=== PATIENT | female | born 1955 | race Caucasian/White ===

== ENCOUNTER 2019-09-20 06:48 | Day surgery (SDC) | payer MEDICARE, BC ==
[~2019-09-20 06:48] MED LIST: Lactated Ringers 1,000 ML IV SCH; Sodium Chloride 0.9% 10 ML Syringe FLUSH PRN
[2019-09-20] MEDS ORDERED: Lidocaine 2% 5 ML SDV INJECT ONE (06:49)
[2019-09-20] MEDS ORDERED: Propofol 200 MG/20 ML SDV IV ONE (06:49)
[2019-09-20] MEDS ORDERED: Midazolam 1 MG/ML 2 ML SDV IV ONE (06:49)
[2019-09-20] MEDS ORDERED: Ketamine 500 mg/10 ML MDV IV ONE (06:49)
--- NOTE | 2019-09-20 09:59 | PCM.OPNOTE ---
- General Post-Op/Procedure Note Date of Surgery/Procedure: 09/20/19 Operative Procedure(s): EGD with Biopsy. Colonoscopy with Biopsy Findings: Post bariatric procedure anatomy but no acute inflammation or lesion on upper endoscopy Small transverse colon polyp but otherwise normal appearing colon Hemorrhoids Pre Op Diagnosis: Abdominal pain. Diarrhea Post-Op Diagnosis: Post Bariatric Surgery. Colon polyp. Hemorrhoids Anesthesia Technique: MAC Primary Surgeon: Tristan Reno Pathology: Biopsies of gastric mucosa and colon EBL in mLs: 4 Complications: None Condition: Good
--- NOTE | 2019-09-20 10:28 | PREOP ---
ADMISSION DATE: 09/20/2019 HISTORY OF PRESENT ILLNESS: This 63-year-old female presents today for an EGD and colonoscopy. She has been having right upper quadrant abdominal pain which is unrelenting. She is not able to identify any inciting events, but the location of the pain is consistent and it continues to recur. The patient also has had several months of unexplained diarrhea. She does have a history of antibiotic use, although this has not recently affected the diarrhea and it also continues. PAST MEDICAL HISTORY: Unchanged from her recent history and physical. She does have a history of having had gastric bypass surgery. MEDICATIONS: Reviewed and noted in her medical record. ALLERGIES: She has no known drug allergies. PHYSICAL EXAMINATION: VITAL SIGNS: Temperature is 98.8, pulse 78, blood pressure is 150/82. GENERAL: The patient is alert, adult female, no acute distress. HEENT: Head is normocephalic. No scleral icterus. HEART: Regular without murmur. LUNGS: Clear. ABDOMEN: Soft and nontender. IMPRESSION: Persistent abdominal pain and diarrhea. PLAN: EGD and colonoscopy. I have discussed the proposed operative procedures with the patient. She understands indications and risks and agrees to proceed. /[id number] SANDRA/BOYD
--- NOTE | 2019-09-20 10:46 | OR ---
DATE OF OPERATION: 09/20/2019 SURGEON: Tristan Reno MD PREOPERATIVE DIAGNOSES: 1. Abdominal pain. 2. Diarrhea. POSTOPERATIVE DIAGNOSES: 1. Post bariatric surgery status. 2. Transverse colon polyp and hemorrhoids. OPERATIONS PERFORMED: 1. Esophagogastroduodenoscopy with biopsy. 2. Colonoscopy with biopsy and polypectomy. INDICATIONS FOR SURGERY: This 63-year-old female has been experiencing unexplained right upper quadrant abdominal pain as well as having a several month history of diarrhea. She comes now for diagnostic upper and lower endoscopy. FINDINGS: On upper endoscopy, the patient's anatomy is abnormal because of her history of bariatric surgery. There is some fluid retained within the distal esophagus, but the scope was able to be advanced down into the stomach and felt to be able to be advanced into the small bowel through the somewhat abnormal anatomy. No visible signs of inflammation, ulcers, or other findings to explain her abdominal pain are noted. On colonoscopy, the patient's colon mucosa appeared normal without visible signs of inflammation. There was single transverse colon polyp, which was 5 mm in size and sessile in configuration. The patient also had small internal and external hemorrhoids. PROCEDURE IN DETAIL: The patient was taken to the procedure room. She was given intravenous sedation, and after a mouth gag had been placed, the gastroscope was advanced through this into the oral cavity. It was then advanced under direct visualization down into the esophagus where there was some fluid identified, but this was suctioned out and then the scope was able to be advanced down through the GE junction into the stomach and the area of surgery was noted with somewhat abnormal-appearing anatomy, but no ulcers or signs of acute inflammation were seen. Random biopsies of the gastric mucosa were taken to rule out H. pylori. The scope was withdrawn and then removed. Attention was turned to colonoscopy. Digital rectal exam was performed showing no rectal masses. The Olympus colonoscope was inserted into the rectum and retroflexed examination of the rectal canal was performed. The scope was then carefully advanced under direct visualization through the entire length of the colon until the cecum was reached. Cecal acquisition was confirmed by noting the normal internal cecal anatomy including the appendiceal orifice and ileocecal valve. After examining the cecum, the scope was slowly withdrawn sequentially re- examining the colonic segments. During withdrawal of the scope, random biopsies of the right and left colon were taken to rule out microscopic colitis. During withdrawal of the scope, above described small polyp was identified. This was removed with multiple bites of the biopsy forceps and submitted as a separate specimen. After the colon had been completely examined, the scope was removed, and the patient was taken from the procedure room in satisfactory condition. ESTIMATED BLOOD LOSS: 4 mL. COMPLICATIONS: None. PROGNOSIS: Good. /[id number] SANDRA/VICTOR MANUELL
== END 2019-09-20 11:00 | disposition home or self-care (01) ==
LOC: FB.SDS 06:48
PROVIDERS: ATTEND Surgery
DX: K29.50 Unspecified chronic gastritis without bleeding (principal); D12.3 Benign neoplasm of transverse colon; K64.4 Residual hemorrhoidal skin tags; K64.8 Other hemorrhoids; I10 Essential (primary) hypertension; K21.9 Gastro-esophageal reflux disease without esophagitis; F32.9 Major depressive disorder, single episode, unspecified; F41.1 Generalized anxiety disorder; Z98.84 Bariatric surgery status; Z79.899 Other long term (current) drug therapy
CPT/HCPCS: 00813; 43239; 45380; J2001; J2250; J2704; J7120; 88305; 88342

== ENCOUNTER 2020-10-10 14:18 | Emergency (ER) | payer MEDICARE, BC ==
[2020-10-10] MEDS ORDERED: Sodium Chloride 0.9% 1,000 ML IV ONE (15:34)
--- NOTE | 2020-10-10 15:40 | EDM.PDOC ---
ED HPI GENERAL MEDICAL PROBLEM - General Chief Complaint: Abdominal Pain Stated Complaint: GI/DEHYDRATION/PYSCH Time Seen by Provider: 10/10/20 15:00 Source of Information: Reports: Patient History Limitations: Reports: No Limitations - History of Present Illness INITIAL COMMENTS - FREE TEXT/NARRATIVE: c/o diarrhea watery stools x 6 yesterday and x 3 today took Imodium 2x yesterday and again today, has had constipation in past with Imodium no abd pain now, has had occasional "gas pains," has slight CASTELLON now, declined meds for it feels weak, think she needs IVF lives with had gastric bypass 40y ago, developed obstruction with scarring at mesh at GE junction, on 09-20-20 [facility] reveresed the bypass and removed the mesh and scar tissue told she would be on a puree diet the rest of her life has not spoken with her [facility] physicians or PCP Hayley Perez this wk, has f/u 10/21 at [facility] 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 SH: 2 daughters, one daughter with 2 children 2y ago from GB duct cancer Mid-abdomen Pain Score (Numeric/FACES): 4 - Related Data Allergies Allergy/AdvReac Type Severity Reaction Status Date / Time No Known Allergies Allergy Verified 10/10/20 14:49 Home Meds: Home Meds Cyanocobalamin (Vitamin B12) [Vitamin B12] 1,000 mcg PO DAILY 03/18/18 [History] Estrogens, Conjugated [Premarin] 0.3 mg PO Q48H 03/18/18 [History] Gabapentin [Neurontin] 600 mg PO QID PRN 03/18/18 [History] Lansoprazole [Prevacid] 30 mg PO BIDMEALS 03/18/18 [History] Lisinopril 20 mg PO DAILY 03/18/18 [History] Lovastatin 20 mg PO BEDTIME 03/18/18 [History] Potassium Gluconate 595 mg PO DAILY 03/18/18 [History] Temazepam 7.5 mg PO BEDTIME PRN 03/18/18 [History] busPIRone [Buspar] 15 mg PO BID 03/18/18 [History] Ascorbate Calcium [Vitamin C] 500 mg PO DAILY 09/19/19 [History] Benzoyl Peroxide [Panoxyl] 1 applic TOP DAILY 09/19/19 [History] Cholecalciferol (Vitamin D3) [Vitamin D3] 1,000 unit PO DAILY 09/19/19 [History] Clobetasol [Clobetasol Propionate 0.05% Cream] 1 applic TOP BID 09/19/19 [History] Diclofenac Sodium [Voltaren 1% Gel] 4 gm TOP QID PRN 09/19/19 [History] Ergocalciferol (Vitamin D2) [Vitamin D2] 50,000 unit PO WE 09/19/19 [History] Magnesium Chloride [Slow-Mag] 1 tab PO DAILY 09/19/19 [History] Oxybutynin Chloride [Ditropan Xl] 15 mg PO BID 09/19/19 [History] PARoxetine [Paxil] 40 mg PO DAILY 09/19/19 [History] Triamcinolone Acetonide [Kenalog 0.1% Crm] 1 applic TOP TID PRN 09/19/19 [History] Vitamin E 400 unit PO DAILY 09/19/19 [History] buPROPion HCL [Wellbutrin Xl] 300 mg PO DAILY 09/19/19 [History] Cyclobenzaprine [Flexeril] 10 mg PO BEDTIME 10/10/20 [History] Famotidine 20 mg PO BID 10/10/20 [History] Ferrous Sulfate 325 mg PO DAILY 10/10/20 [History] LORazepam [Ativan] 0.5 mg PO TID PRN 10/10/20 [History] LORazepam [Ativan] 1 mg PO BEDTIME 10/10/20 [History] Loperamide HCl [Loperamide] 2 mg PO ASDIRECTED #50 tablet 10/10/20 [Rx] rOPINIRole [Requip] 1.5 mg PO BEDTIME 10/10/20 [History] Past Medical History HEENT History: Reports: Cataract, Impaired Vision Cardiovascular History: Reports: High Cholesterol, Hypertension, Other (See Below) Other Cardiovascular History: AORTIC VALVE INSUFFICIENCY Respiratory History: Reports: Sleep Apnea Other Respiratory History: uses CPAP Gastrointestinal History: Reports: GERD, Hiatal Hernia, PUD, Other (See Below) Other Gastrointestinal History: GASTRIC ULCER, hx stomach blockage Genitourinary History: Reports: Urinary Incontinence, UTI, Recurrent 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 HELPER History: Musculoskeletal History: Reports: Arthritis, Back Pain, Chronic, Fracture, Osteoarthritis, Osteoporosis, Other (See Below) Other Musculoskeletal History: RLS, hx tib fx, hx L 3rd digit, hx compression fx thoracic region Neurological History: Reports: None Psychiatric History: Reports: Addiction, Anxiety, Depression, Panic Attack, Psych Hospitalization(s), Suicide Attempt, Other (See Below) Other Psychiatric History: INSOMNIA Endocrine/Metabolic History: Reports: Obesity/BMI 30+ Hematologic History: Reports: Anemia, B12 Deficiency, Iron Deficiency Immunologic History: Reports: None Oncologic (Cancer) History: Reports: None Dermatologic History: Reports: Other (See Below) Other Dermatologic History: occ rash to pannus - Infectious Disease History Infectious Disease History: Reports: None - Past Surgical History Head Surgeries/Procedures: Reports: None HEENT Surgical History: Reports: None, Adenoidectomy, Tonsillectomy Cardiovascular Surgical History: Reports: None Respiratory Surgical History: Reports: None GI Surgical History: Reports: Appendectomy, Bariatric Procedure, Colonoscopy, EGD, Hernia Repair/Other Other GI Surgeries/Procedures: hernia repair x 2 Female Surgical History: Reports: Hysterectomy, Salpingo-Oophorectomy Other Female Surgeries/Procedures: total hyst, Endocrine Surgical History: Reports: None Neurological Surgical History: Reports: None Musculoskeletal Surgical History: Reports: None Oncologic Surgical History: Reports: None Dermatological Surgical History: Reports: None Social & Family History - Family History Family Medical History: No Pertinent Family History - Tobacco Use Tobacco Use Status *Q: Never Tobacco User - Caffeine Use Caffeine Use: Reports: Energy Drinks - Recreational Drug Use Recreational Drug Use: No ED ROS GENERAL - Review of Systems Review Of Systems: See Below Constitutional: Reports: No Symptoms HEENT: Reports: No Symptoms Respiratory: Reports: No Symptoms Cardiovascular: Reports: No Symptoms Endocrine: Reports: No Symptoms GI/Abdominal: Reports: Abdominal Pain, Diarrhea. Denies: Bloody Stool, Difficulty Swallowing, Nausea, Vomiting : Reports: No Symptoms Musculoskeletal: Reports: No Symptoms Skin: Reports: No Symptoms Neurological: Reports: No Symptoms Psychiatric: Reports: No Symptoms Hematologic/Lymphatic: Reports: No Symptoms Immunologic: Reports: No Symptoms ED EXAM, GI/ABD - Physical Exam Exam: See Below Exam Limited By: No Limitations General Appearance: Alert, WD/WN, No Apparent Distress, Anxious, Other (very talkative, moves and lies easily, not ill) Nose: Normal Inspection Throat/Mouth: Normal Lips, Normal Teeth, No Airway Compromise Head: Atraumatic, Normocephalic Neck: Supple, Non-Tender Respiratory/Chest: No Respiratory Distress, Lungs Clear, Normal Breath Sounds, No Accessory Muscle Use Cardiovascular: Regular Rate, Rhythm, No Edema, No Murmur GI/Abdominal Exam: Soft, Other (healing port scars upper abd without induration/red/tender, soft, nl BS x 4, NT) Back Exam: Normal Inspection, Full Range of Motion Extremities: Normal Inspection, Normal Range of Motion, Non-Tender, No Pedal Edema Neurological: Alert, Oriented, CN II-XII Intact, Normal Cognition, No Motor/Sensory Deficits Psychiatric: Normal Affect, Anxious, Other (no depression, mild anxiety, no SI/HI) Skin Exam: Warm, Dry, Intact, Normal Color, No Rash Lymphatic: No Adenopathy Course - Vital Signs Last Recorded V/S: Last Vital Signs Temp 36.7 C 10/10/20 14:42 Pulse 112 H 10/10/20 14:42 Resp 18 10/10/20 14:42 BP 140/81 10/10/20 14:42 Pulse Ox 100 10/10/20 14:42 - Orders/Labs/Meds Labs: Laboratory Tests 10/10/20 10/10/20 10/10/20 Range/Units 15:50 15:50 15:50 WBC 6.9 (3.0-10.3) x10-3/uL RBC 4.00 (3.60-5.20) x10(6)uL Hgb 13.3 (11.4-15.5) g/dL Hct 39.6 (34.2-48.2) % MCV 99.0 (76.7-100.5) fL MCH 33.4 (23.9-33.9) pg MCHC 33.7 (31.9-34.8) g/dL RDW 13.3 (12.3-16.5) % Plt Count 356 (151-488) x10(3)uL MPV 8.0 (7.1-12.4) fL Neut % (Auto) 65.7 (30.8-76.2) % Lymph % (Auto) 21.7 (18.4-52.1) % Cross % (Auto) 11.6 (4.4-15.7) % Eos % (Auto) 0.0 L (0.6-8.1) % Baso % (Auto) 1.0 (0.2-1.5) % Neut # (Auto) 4.6 (1.5-6.3) x10-3/uL Lymph # (Auto) 1.5 (1.0-4.4) x10-3/uL Cross # (Auto) 0.8 (0.3-1.0) x10-3/uL Eos # (Auto) 0.0 (0.0-0.8) x10-3/uL Baso # (Auto) 0.1 (0.0-0.1) x10-3/uL Sodium 137 (135-145) mmol/L Potassium 4.2 (3.5-5.3) mmol/L Chloride 100 D (100-110) mmol/L Carbon Dioxide 28 (21-32) mmol/L BUN 9 (7-18) mg/dL Creatinine 0.8 (0.55-1.02) mg/dL Est Cr Clr Drug Dosing 67.27 mL/min Estimated GFR (MDRD) > 60 (>60) BUN/Creatinine Ratio 11.3 (9-20) Glucose 110 (80-116) mg/dL Calcium 9.1 (8.6-10.2) mg/dL Total Bilirubin 0.4 (0.1-1.3) mg/dL AST 20 (5-25) IU/L ALT 21 (12-36) U/L Alkaline Phosphatase 81 (56-112) IU/L C-Reactive Protein (0.5-0.9) mg/dL Total Protein 6.9 (6.0-8.0) g/dL Albumin 3.2 (3.2-4.6) g/dL Globulin 3.7 g/dL Albumin/Globulin Ratio 0.9 Lipase 32 L (73-393) U/L Urine Color (YELLOW) Urine Appearance (CLEAR) Urine pH (5.0-6.5) Ur Specific [place] (1.010-1.025) Urine Protein (NEGATIVE) mg/dL Urine Glucose (UA) (NORMAL) mg/dL Urine Ketones (NEGATIVE) mg/dL Urine Occult Blood (NEGATIVE) Urine Nitrite (NEGATIVE) Urine Bilirubin (NEGATIVE) Urine Urobilinogen (NEGATIVE) mg/dL Ur Leukocyte Esterase (NEGATIVE) Urine RBC (0-5) Urine WBC (0-5) Ur Squamous Epith Cells (NS,R,O) Urine Bacteria (NS) Coarse Granular Casts (NS) 10/10/20 10/10/20 Range/Units 15:50 16:30 WBC (3.0-10.3) x10-3/uL RBC (3.60-5.20) x10(6)uL Hgb (11.4-15.5) g/dL Hct (34.2-48.2) % MCV (76.7-100.5) fL MCH (23.9-33.9) pg MCHC (31.9-34.8) g/dL RDW (12.3-16.5) % Plt Count (151-488) x10(3)uL MPV (7.1-12.4) fL Neut % (Auto) (30.8-76.2) % Lymph % (Auto) (18.4-52.1) % Cross % (Auto) (4.4-15.7) % Eos % (Auto) (0.6-8.1) % Baso % (Auto) (0.2-1.5) % Neut # (Auto) (1.5-6.3) x10-3/uL Lymph # (Auto) (1.0-4.4) x10-3/uL Cross # (Auto) (0.3-1.0) x10-3/uL Eos # (Auto) (0.0-0.8) x10-3/uL Baso # (Auto) (0.0-0.1) x10-3/uL Sodium (135-145) mmol/L Potassium (3.5-5.3) mmol/L Chloride (100-110) mmol/L Carbon Dioxide (21-32) mmol/L BUN (7-18) mg/dL Creatinine (0.55-1.02) mg/dL Est Cr Clr Drug Dosing mL/min Estimated GFR (MDRD) (>60) BUN/Creatinine Ratio (9-20) Glucose (80-116) mg/dL Calcium (8.6-10.2) mg/dL Total Bilirubin (0.1-1.3) mg/dL AST (5-25) IU/L ALT (12-36) U/L Alkaline Phosphatase (56-112) IU/L C-Reactive Protein 0.7 (0.5-0.9) mg/dL Total Protein (6.0-8.0) g/dL Albumin (3.2-4.6) g/dL Globulin g/dL Albumin/Globulin Ratio Lipase (73-393) U/L Urine Color Yellow (YELLOW) Urine Appearance Slightly cloudy (CLEAR) Urine pH 5.0 (5.0-6.5) Ur Specific [place] 1.020 (1.010-1.025) Urine Protein Negative (NEGATIVE) mg/dL Urine Glucose (UA) Normal (NORMAL) mg/dL Urine Ketones Negative (NEGATIVE) mg/dL Urine Occult Blood Negative (NEGATIVE) Urine Nitrite Negative (NEGATIVE) Urine Bilirubin Negative (NEGATIVE) Urine Urobilinogen Normal (NEGATIVE) mg/dL Ur Leukocyte Esterase Moderate H (NEGATIVE) Urine RBC 0-5 (0-5) Urine WBC 0-5 (0-5) Ur Squamous Epith Cells Few H (NS,R,O) Urine Bacteria Few H (NS) Coarse Granular Casts Rare H (NS) Meds: Medications Discontinued Medications Generic Name Dose Route Start Last Admin Trade Name Freq PRN Reason Stop Dose Admin Sodium Chloride 1,000 mls @ 999 mls/hr 10/10/20 15:34 10/10/20 17:00 Normal Saline IV 10/10/20 16:34 999 mls/hr .BOLUS ONE Administration Departure - Departure Time of Disposition: 17:58 Disposition: Home, Self-Care 01 Condition: Good Clinical Impression: Hypermotility of intestine - Discharge Information *PRESCRIPTION DRUG MONITORING PROGRAM REVIEWED*: Not Applicable *COPY OF PRESCRIPTION DRUG MONITORING REPORT IN PATIENT EMMY: Not Applicable Prescriptions: Loperamide HCl [Loperamide] 2 mg PO ASDIRECTED #50 tablet Instructions: Diarrhea, Adult Referrals: Lucy Chin PAWN BROKER [Primary Care Provider] - Forms: ED Department Discharge Additional Instructions: Your blood and urine tests here are excellent. You are healing well from your surgery. Keep your follow up appointment at [facility] as scheduled. Take loperamide 2 mg 1 tab after each loose stool. See your PCP, Lucy Chin, as needed. Sepsis Event Note (ED) - Evaluation Sepsis Screening Result: No Definite Risk - Focused Exam Vital Signs: Vital Signs Temp Pulse Resp BP Pulse Ox 10/10/20 14:42 36.7 C 112 H 18 140/81 100
== END 2020-10-10 18:25 | disposition home or self-care (01) ==
LOC: FB.ED 14:18
DX: K58.0 Irritable bowel syndrome with diarrhea (principal)
CPT/HCPCS: 36415; 80053; 81001; 83690; 85025; 86140; 99283; 99284; J7030